=== PATIENT | female | born 1935 | race Caucasian/White ===

== ENCOUNTER 2019-07-18 13:03 | Emergency (ER) | payer MEDICARE, OTHER ==
[~2019-07-18] VITALS: Ht 160 cm; Wt 54.5 kg
[2019-07-18 13:44] LABS: BASOPHILS # (AUTO) 0.1 X10'3 (0-0.2); EOSINOPHILS # (AUTO) 0.1 X10'3 (0-0.9); EOSINOPHILS % (AUTO) 1.2 % (0-6); HEMATOCRIT 40.6 % (35.0-45.0); HEMOGLOBIN 13.8 g/dl (12.0-16.0); LYMPHOCYTES % (AUTO) 30.1 % (21-51); MEAN CORPUSCULAR HEMOGLOBIN 29.7 PG (27.0-31.0); MEAN CORPUSCULAR HGB CONC 33.9 g/dL (33.0-36.5); MEAN CORPUSCULAR VOLUME 87.4 FL (78-98); MEAN PLATELET VOLUME 11.1 FL (7.4-10.4); MONOCYTES # (AUTO) 0.5 X10'3 (0-0.9); MONOCYTES % (AUTO) 7.5 % (2-12); NEUTROPHILS % (AUTO) 60.2 % (42-75); PLATELET COUNT 146 X10'3 (140-440); RED BLOOD COUNT 4.64 X10'6 (4.20-5.60); RED CELL DISTRIBUTION WIDTH 14.5 % (11.5-14.5); WHITE BLOOD COUNT 6.6 X10'3 (4.5-11.0)
[2019-07-18 14:04] LABS: ALANINE AMINOTRANSFERASE 12 U/L (12-78); ALBUMIN 3.6 G/DL (3.4-5.0); ALBUMIN/GLOBULIN RATIO 0.9 (1.1-1.5); ALKALINE PHOSPHATASE 59 IU/L (46-116); ANION GAP 8 (8-16); ASPARTATE AMINO TRANSFERASE 18 U/L (10-37); BILIRUBIN,TOTAL 0.5 MG/DL (0.1-1.0); BLOOD UREA NITROGEN 27 MG/DL (7-18); BUN/CREATININE RATIO 27.3 (6.6-38.0); CALCIUM 9.5 MG/DL (8.5-10.1); CHLORIDE 106 MMOL/L (99-107); CREATININE 0.99 MG/DL (0.40-0.90); GLUCOSE 131 MG/DL (70-104); POTASSIUM 3.9 MMOL/L (3.5-5.1); SODIUM 139 MMOL/L (135-145); TOTAL CARBON DIOXIDE 24.9 MMOL/L (24-32); TOTAL PROTEIN 7.5 G/DL (6.4-8.2); eGFR 54 ML/MIN
[2019-07-18 14:13] LABS: ETHANOL < 0.010 GM/DL (0.0-0.010)
[2019-07-18] MEDS ORDERED: ASPI81TA52 PO (14:31)
[2019-07-18] MEDS ORDERED: LEVE250T4 PO (14:31)
[2019-07-18] MEDS ORDERED: SERT-153 PO (14:31)
[2019-07-18] MEDS ORDERED: ESCI20TA PO (14:31)
[2019-07-18] MEDS ORDERED: SYN0.088T PO (14:31)
[2019-07-18 14:53] LABS: LARGE PLATELETS FEW; PLATELET ESTIMATE NORMAL
[2019-07-18] MEDS: sertraline 50mg tablet PO SCH (16:11)
[2019-07-18] MEDS: levoTHYROXINE 88mcg tablet PO SCH (16:12)
[2019-07-18] MEDS: aspirin 81mg tablet.DR PO SCH (16:12)
[2019-07-18] MEDS: ESCITALOPRAM OXALATE 5 MG TABLET PO SCH (16:12)
[2019-07-18 16:58] LABS: URINE AMPHETAMINE SCREEN NEGATIVE (Neg); URINE BARBITUATE SCREEN NEGATIVE (Neg); URINE BENZODIAZEPINES SCREEN NEGATIVE (Neg); URINE CANNABINOID SCREEN NEGATIVE (Neg); URINE COCAINE SCREEN NEGATIVE (Neg); URINE METHADONE SCREEN NEGATIVE (Neg); URINE OPIATE SCREEN NEGATIVE (Neg); URINE PHENCYCLIDINE SCREEN NEGATIVE (Neg)
--- NOTE | 2019-07-18 18:35 | NUR ---
Pt sitting up eating dinner.
--- NOTE | 2019-07-18 19:45 | NUR ---
Pt did not like the dinner offered, and instead opted for an ensure. Pt declined additional snacks.
[2019-07-18] MEDS ORDERED: levetiracetam 250mg tablet PO SCH (21:00)
--- NOTE | 2019-07-18 21:00 | NUR ---
Pt states she lost her 3 years ago to cancer, and at this point her two dtrs "disowned" her r/t finances. She states she was to her for 57 years, and after his passing moved into a 5th wheel. She first resided in a trailer park in [place] that she enjoyed, as there was a community there that she felt a part of and allowed for socialization. This was particularly important as pt can no longer drive, and except by assistance from her nephew, Kye, fairly isolated living alone with her dog. Pt moved to another trailer park where she currently resides, and states she has no friends there, "just feel very lonely and very stressed". Pt states she thought about "just what if I didn't live anymore, but it was just for a small moment, I have a dog to live for and I just love her so much." Pt endorses chronic depression and "stress, i guess it can be anxiety" r/t the life changes that have occurred, beginning with her husbands passing. Compliant with HS medication, and also given melatonin 3mg for sleep and Tylenol 650mg for pain. Pt repeated herself multiple times during assessment, unaware that she had shared some of her story already. Mood: Lonely, Stressed; Affect: Pleasant; SI: Denies; Dep: 10; Anx: 09/13; Behavior: Cooperative; Eye Contact: Good; Insight: Fair to Good; Cognition: A&Ox4, Mild age rt cognitive deficits Social: Twin sister, Nava - Visits occasionally Kye, Nephew - Primary contact and support ([phone]) Estranged from dtrs
[2019-07-18] MEDS ORDERED: Melatonin 3mg tablet PO PRN (22:35)
[2019-07-18] MEDS ORDERED: acetaminophen 325mg tablet PO PRN (22:35)
--- NOTE | 2019-07-19 00:22 | NUR ---
Pt sleeping supine, breathing even and unlabored.
--- NOTE | 2019-07-19 01:23 | NUR ---
Kye Nephew - Primary contact and support ([phone])
--- NOTE | 2019-07-19 03:00 | NUR ---
Pt sleeping supine.
--- NOTE | 2019-07-19 05:15 | NUR ---
Pt sleeping, breathin even and unlabored.
--- NOTE | 2019-07-19 06:31 | NUR ---
Patient sleeping supine in bed. Respirations are even and nonlabored.
[2019-07-19] MEDS: aspirin 81mg tablet.DR PO SCH (08:12)
[2019-07-19] MEDS: ESCITALOPRAM OXALATE 5 MG TABLET PO SCH (08:13)
[2019-07-19] MEDS: sertraline 50mg tablet PO SCH (08:13)
[2019-07-19] MEDS: levoTHYROXINE 88mcg tablet PO SCH (08:13)
--- NOTE | 2019-07-19 09:05 | NUR ---
Patient ate breakfast and is now sleeping on her right side.
--- NOTE | 2019-07-19 11:04 | NUR ---
Patient is sleeping supine in bed, respirations are even and nonlabored.
--- NOTE | 2019-07-19 13:20 | NUR ---
Pt. evaluated by SW. Jamal Cuellar at bedside. Patient is eating lunch.
[2019-07-19 14:08] VITALS: BP 105/55
== END 2019-07-19 14:15 | disposition home or self-care (01) ==
LOC: ER 13:04
DX: F32.9 Major depressive disorder, single episode, unspecified (principal); N28.9 Disorder of kidney and ureter, unspecified; E03.9 Hypothyroidism, unspecified; F17.200 Nicotine dependence, unspecified, uncomplicated; Z79.82 Long term (current) use of aspirin; Z79.899 Other long term (current) drug therapy
CPT/HCPCS: 36415; 80053; 80305; 80320; 84443; 84484; 85025; 93005; 99285

== ENCOUNTER 2023-11-26 09:39 | Emergency (ER) | payer MEDICARE, OTHER ==
[~2023-11-26] VITALS: Ht 160 cm; Wt 65.9 kg
[~2023-11-26 09:39] MED LIST: ASPI81TA52 PO; ESCI20TA PO; LEVE250T4 PO; SERT-153 PO; SYN0.088T PO
[2023-11-26 09:50] VITALS: TEMP 97.7
[2023-11-26 10:29] LABS: BASOPHILS # (AUTO) 0.1 X10'3 (0-0.2); EOSINOPHILS # (AUTO) 0.3 X10'3 (0-0.9); LYMPHOCYTES # (AUTO) 1.5 X10'3 (1.1-4.8); MONOCYTES # (AUTO) 1.3 X10'3 (0-0.9); RED CELL DISTRIBUTION WIDTH 13.8 % (11.5-14.5); WHITE BLOOD COUNT 6.8 X10'3 (4.5-11.0)
[2023-11-26 10:31] LABS: BASOPHILS % (AUTO) 0.9 % (0-1); EOSINOPHILS % (AUTO) 4.4 % (0-6); HEMATOCRIT 41.9 % (35.0-45.0); HEMOGLOBIN 13.8 g/dl (12.0-16.0); LYMPHOCYTES % (AUTO) 21.9 % (21-51); MEAN CORPUSCULAR HEMOGLOBIN 29.7 PG (27.0-31.0); MEAN CORPUSCULAR HGB CONC 32.9 g/dL (33.0-36.5); MEAN CORPUSCULAR VOLUME 90.4 FL (78-98); MEAN PLATELET VOLUME 12.6 FL (7.4-10.4); MONOCYTES % (AUTO) 18.7 % (2-12); NEUTROPHILS # (AUTO) 3.7 X10'3 (1.8-7.7); NEUTROPHILS % (AUTO) 54.1 % (42-75); PLATELET COUNT 108 X10'3 (140-440); RED BLOOD COUNT 4.64 X10'6 (4.20-5.60)
[2023-11-26 10:56] LABS: ALBUMIN 3.3 G/DL (3.4-5.0); ANION GAP 8 (8-16); BLOOD UREA NITROGEN 20 MG/DL (7-18); CALCIUM 9.1 MG/DL (8.5-10.1); CHLORIDE 105 MMOL/L (99-107); CREATININE 1.05 MG/DL (0.40-0.90); GLUCOSE 101 MG/DL (70-104); POTASSIUM 4.1 MMOL/L (3.5-5.1); PRO BRAIN NATRIURETIC PEPTIDE 884 PG/ML (0-450); SODIUM 140 MMOL/L (135-145); TOTAL CARBON DIOXIDE 26.6 MMOL/L (24-32); eCRCL 32 ML/MIN; eGFR 50 ML/MIN
[2023-11-26 11:06] LABS: TOTAL CELLS COUNTED 100
[2023-11-26 11:07] LABS: PLATELET ESTIMATE DECREASED
[2023-11-26 11:08] LABS: LARGE PLATELETS FEW
[2023-11-26 11:26] LABS: BILIRUBIN,URINE NEGATIVE (Neg); CLARITY,URINE CLEAR (Clear); COLOR,URINE YELLOW (Yellow); GLUCOSE, URINE NEGATIVE (Neg); KETONES,URINE 15 mg/dl (Neg); LEUKOCYTE ESTERASE ,URINE NEGATIVE (Neg); NITRITES, URINE NEGATIVE (Neg); OCCULT BLOOD,URINE TRACE-INTACT (Neg); PROTEIN,URINE NEGATIVE (Neg); UROBILINOGEN,URINE 0.2 E.U/dL (0.2-1.0)
[2023-11-26] MEDS: normal saline 1000ML IV soln IVB ONE (11:28)
[2023-11-26 11:32] LABS: UA COLLECTION TYPE OTHER
[2023-11-26 11:46] LABS: MUCUS STRANDS MANY /LPF (Neg); SQUAMOUS EPITHELIAL CELL,UR FEW /LPF (FEW)
[2023-11-26 11:47] LABS: BACTERIA,URINE FEW /HPF (Neg); WBC,URINE 0-4 /HPF (0-4)
[2023-11-26 14:02] LABS: D-DIMER 0.82 MG/L FEU (0-0.50)
[2023-11-26 14:38] VITALS: BP 105/71; PULSE 70; RESP 16; O2SAT 99
== END 2023-11-26 14:49 | disposition home or self-care (01) ==
LOC: ER 09:39
DX: R53.1 Weakness (principal); F32.A Depression, unspecified; Z79.82 Long term (current) use of aspirin; Z79.899 Other long term (current) drug therapy
CPT/HCPCS: 36415; 71045; 80048; 81001; 83880; 84145; 84484; 85007; 85025; 85379; 93005; 96360; 99285; C1758; J7030